=== PATIENT | male | born 1995 | race Caucasian/White ===

== ENCOUNTER 2018-07-16 21:42 | Emergency (ER) | payer OTHER ==
[2018-07-16 21:53] VITALS: BP 144/71
[2018-07-16] MEDS ORDERED: Azithromycin TAB* 250 MG PO ONE (22:03)
--- NOTE | 2018-07-16 22:03 | UC ---
Throat Pain/Nasal Kenneth HPI - HPI Summary HPI Summary: Pt presents with c/o ST and productive cough X 3 weeks. P treports that this evening he "coughed" and coughed up a large "glob of mucusy blood". - History of Current Complaint Chief Complaint: UCRespiratory Stated Complaint: ST Time Seen by Provider: 07/16/18 21:54 Hx Obtained From: Patient Onset/Duration: Gradual Onset, Lasting Weeks, Still Present Severity: Moderate Pain Intensity: 7 Cough: Sputum Appears - dark red Associated Signs & Symptoms: Positive: Dysphagia - Epiglottits Risk Factors Epiglottis Risk Factors: Negative - Allergies/Home Medications Allergies/Adverse Reactions: Allergies Allergy/AdvReac Type Severity Reaction Status Date / Time No Known Allergies Allergy Verified 07/16/18 21:51 PMH/Surg Hx/FS Hx/Imm Hx Previously Healthy: Yes - Surgical History Surgical History: None - Family History Known Family History: Positive: Cardiac Disease - Social History Occupation: Student Lives: Dormitory/Roommates Alcohol Use: Rare Substance Use Type: None Smoking Status (MU): Never Smoked Tobacco Have You Smoked in the Last Year: No - Immunization History Vaccination Up to Date: Yes Review of Systems All Other Systems Reviewed And Are Negative: Yes Constitutional: Positive: Fatigue Skin: Positive: Negative Eyes: Positive: Negative ENT: Positive: Sore Throat Respiratory: Positive: Cough Cardiovascular: Positive: Negative Gastrointestinal: Positive: Negative Genitourinary: Positive: Negative Motor: Positive: Negative Neurovascular: Positive: Negative Musculoskeletal: Positive: Negative Neurological: Positive: Negative Psychological: Positive: Negative Is Patient Immunocompromised?: No Physical Exam Triage Information Reviewed: Yes Appearance: Well-Appearing Vital Signs: Initial Vital Signs Temp 98.1 F 07/16/18 21:52 Pulse 70 07/16/18 21:52 Resp 16 07/16/18 21:52 BP 144/71 07/16/18 21:52 Pulse Ox 100 07/16/18 21:52 Vital Signs Reviewed: Yes Eye Exam: Normal ENT Exam: Other ENT: Positive: Tonsillar swelling - bilateral, Tonsillar exudate - right side Dental Exam: Normal Neck exam: Other Neck: Positive: Tenderness @, Enlarged Nodes @ - right submandibular Respiratory Exam: Normal Cardiovascular Exam: Normal Musculoskeletal Exam: Normal Neurological Exam: Normal Psychological Exam: Normal Skin Exam: Normal Throat Pain/Nasal Course/Dx - Differential Dx/Diagnosis Differential Diagnosis/HQI/PQRI: Mononucleosis, Pharyngitis, Tonsillitis Provider Diagnosis: Tonsillitis with exudate Discharge - Sign-Out/Discharge Documenting (check all that apply): Patient Departure All imaging exams completed and their final reports reviewed: No Studies - Discharge Plan Condition: Stable Disposition: HOME Prescriptions: Azithromycin 500 mg PO DAILY #4 tablet Patient Education Materials: Tonsillitis (ED) Referrals: [facility] [Outside] - If Needed No Primary Care Phys,NOPCP [Primary Care Provider] - - Billing Disposition and Condition Condition: STABLE Disposition: Home
== END 2018-07-16 22:13 | disposition home or self-care (01) ==
LOC: UCCORT 21:42
DX: J03.90 Acute tonsillitis, unspecified (principal)
CPT/HCPCS: 99202; A9270-GY; G0463